=== PATIENT | male | born 1930 | race Caucasian/White ===

== ENCOUNTER 2016-12-28 15:02 | Inpatient (IN) | payer MEDICARE, OTHER ==
[2016-12-28] MEDS ORDERED: Morphine INJ* 4 MG/ML 1 ML SYRINGE IV ONE (15:16)
[2016-12-28] MEDS ORDERED: Ondansetron INJ* 2 MG/ML VIAL IV ONE (15:16)
[2016-12-28] MEDS ORDERED: NS 0.9% 1000 ML* 1,000 ML IV SCH (15:30)
[2016-12-28 15:31] LABS: Hematocrit 43 % (42-52); Hemoglobin 14.4 g/dl (14.0-18.0); Mean Corpuscular HGB Conc 34 g/dl (31-36); Mean Corpuscular Hemoglobin 35 pg (27-31); Mean Corpuscular Volume 102 fL (80-94); Mean Platelet Volume 9 um3 (7.4-10.4); Red Blood Count 4.19 10^6/ul (4.0-5.4); Red Cell Distribution Width 13 % (10.5-15); White Blood Count 6.2 10^3/ul (3.5-10.8)
[2016-12-28 15:48] LABS: Troponin I 0.01 ng/mL (<0.04)
[2016-12-28 15:52] LABS: Albumin 4.1 g/dL (3.2-5.2); BUN/Creatinine Ratio 17.3 (8-20); Calcium 9.2 mg/dL (8.6-10.3); EGFR African American 93.7 (>60); EGFR Non-African American 72.9 (>60); Globulin 2.9 g/dL (2-4); Potassium 3.7 mmol/L (3.5-5.0); Total Bilirubin 0.6 mg/dL (0.2-1.0)
--- NOTE | 2016-12-28 16:16 | RAD ---
INDICATION: Right femur injury. TECHNIQUE: 2 views of the right femur were obtained. FINDINGS: The bones are osteoporotic. There is a comminuted intertrochanteric fracture of the proximal femur. The fracture fragments appear rotated. There is varus angulation. IMPRESSION: COMMINUTED DISPLACED ANGULATED INTERTROCHANTERIC FRACTURE OF THE PROXIMAL FEMUR.
--- NOTE | 2016-12-28 16:19 | RAD ---
INDICATION: Right hip injury. COMPARISON: Comparison is made with a prior x-ray study of the pelvis from January 19, 2009. TECHNIQUE: An AP view of the pelvis and frontal and lateral views of the right hip were obtained. FINDINGS: The bones are osteoporotic. The patient is status post remote operative reduction and internal fixation of the fracture of the left femur. There is a comminuted displaced acute intertrochanteric fracture of the proximal right femur. The fracture fragments are in varus angulation. The lesser trochanter is seen as a separate fragment. No other fractures are seen. IMPRESSION: COMMINUTED, DISPLACED, ANGULATED INTERTROCHANTERIC FRACTURE OF THE PROXIMAL RIGHT FEMUR.
--- NOTE | 2016-12-28 16:29 | RAD ---
INDICATION: Fall. COMPARISON: Comparison is made with a prior CT of the chest from December 02, 2013 and a prior chest x-ray study also from December 02, 2013. TECHNIQUE: A portable view of the chest was obtained. FINDINGS: The heart is within normal limits in size. There is a focal area of increased density which projects over the inferior portion of the heart which correlates with a moderate to large hiatal hernia on the prior CT study. There is mild prominence of the interstitial markings which appears unchanged. No focal infiltrate or pleural effusion is seen. IMPRESSION: 1. NO EVIDENCE FOR ACUTE FINDING. 2. HIATAL HERNIA.
[2016-12-28] MEDS ORDERED: Acetaminophen TAB* 325 MG PO PRN (17:43)
[2016-12-28] MEDS ORDERED: Morphine INJ* 4 MG/ML 1 ML SYRINGE IV PRN (17:43)
--- NOTE | 2016-12-28 17:48 | ED ---
Fareed Irving Billy, scribed for Rojas Fox MD on 12/28/16 at 1514 . Lower Extremity - HPI Summary HPI Summary: Patient is an 86 year-old male BIBA to [facility] for evaluation of RLE pain s/p fall earlier today. Patient states that he got up from his seat and his leg gave out from under him. Patient reports pain to the upper right leg, severity 8 /10. Pain is worse with any movement. Denies any pain in the hip. Patient uses Coumadin. - History of Current Complaint Chief Complaint: EDExtremityLower Stated Complaint: FALL/LEG PAIN Time Seen by Provider: 12/28/16 15:09 Hx Obtained From: Patient Mechanism Of Injury: Fall From Height Of: - chair Onset of Pain: Immediate Onset/Duration: Hours Severity Initially: Moderate Severity Currently: Moderate Pain Intensity: 8 Pain Scale Used: 0-10 Numeric Timing: Constant Location: Is Discrete @ - RLE Associated Signs And Symptoms: Positive: Negative Aggravating Factor(s): Movement Alleviating Factor(s): Rest Able to Bear Weight: No - Allergies/Home Medications Allergies/Adverse Reactions: Allergies Allergy/AdvReac Type Severity Reaction Status Date / Time No Known Allergies Allergy Verified 12/02/13 10:03 PMH/Surg Hx/FS Hx/Imm Hx Endocrine/Hematology History: Reports: Hx Anticoagulant Therapy Denies: Hx Diabetes Cardiovascular History: Reports: Hx Angina, Hx Hypercholesterolemia, Hx Hypertension, Other Cardiovascular Problems/Disorders - CAROTID ARTERY BLOCKAGE Denies: Hx Coronary Artery Disease, Hx Myocardial Infarction, Hx Valvular Heart Disease Respiratory History: Denies: Hx Asthma, Hx Chronic Obstructive Pulmonary Disease (COPD) History: Reports: Hx Kidney Stones Sensory History: Reports: Hx Contacts or Glasses Opthamlomology History: Reports: Hx Contacts or Glasses - Surgical History Surgery Procedure, Year, and Place: 12/2008 left femur repair; 1996 right carotid artery stent Infectious Disease History: No Infectious Disease History: Denies: Traveled Outside the [place] in Last 30 Days - Family History Known Family History: Negative: Cardiac Disease - Social History Occupation: Retired Alcohol Use: None Substance Use Type: Reports: None Review of Systems Negative: Fever Positive: Arthralgia All Other Systems Reviewed And Are Negative: Yes Physical Exam Triage Information Reviewed: Yes Vital Signs On Initial Exam: Initial Vitals Temp Pulse Resp BP Pulse Ox 99.3 F 104 16 158/85 95 12/28/16 15:06 12/28/16 15:06 12/28/16 15:06 12/28/16 15:06 12/28/16 15:06 Vital Signs Reviewed: Yes Appearance: Positive: Well-Appearing, No Pain Distress Skin: Positive: Warm, Skin Color Reflects Adequate Perfusion, Dry Head/Face: Positive: Normal Head/Face Inspection Eyes: Positive: EOMI, DEBI ENT: Positive: Normal ENT inspection Neck: Positive: Supple, Nontender Respiratory/Lung Sounds: Positive: Clear to Auscultation, Breath Sounds Present Cardiovascular: Positive: Murmur, Tachycardia Abdomen Description: Positive: Nontender, Soft Musculoskeletal: Positive: Pain @ - There is shortening and external rotation of the RLE. It is tender to the mid-thigh proximally. There is also pain with ROM of the right shoulder. Neurological: Positive: Normal, Sensory/Motor Intact, Alert, Oriented to Person Place, Time Psychiatric: Positive: Affect/Mood Appropriate Diagnostics - Vital Signs Vital Signs Temp Pulse Resp BP Pulse Ox 12/28/16 15:06 99.3 F 104 16 158/85 95 - Laboratory Lab Results: Lab Results 12/28/16 12/28/16 12/28/16 Range/Units 15:20 15:20 15:20 WBC 6.2 (3.5-10.8) 10^3/ul RBC 4.19 (4.0-5.4) 10^6/ul Hgb 14.4 (14.0-18.0) g/dl Hct 43 (42-52) % MCV 102 H (80-94) fL MCH 35 H (27-31) pg MCHC 34 (31-36) g/dl RDW 13 (10.5-15) % Plt Count 177 (150-450) 10^3/ul MPV 9 (7.4-10.4) um3 Neut % (Auto) 56.1 (38-83) % Lymph % (Auto) 30.3 (25-47) % Deuel % (Auto) 7.3 (1-9) % Eos % (Auto) 5.1 (0-6) % Baso % (Auto) 1.2 (0-2) % Absolute Neuts (auto) 3.5 (1.5-7.7) 10^3/ul Absolute Lymphs (auto) 1.9 (1.0-4.8) 10^3/ul Absolute Monos (auto) 0.5 (0-0.8) 10^3/ul Absolute Eos (auto) 0.3 (0-0.6) 10^3/ul Absolute Basos (auto) 0.1 (0-0.2) 10^3/ul Absolute Nucleated RBC 0.01 10^3/ul Nucleated RBC % 0.1 INR (Anticoag Therapy) 2.08 H (0.89-1.11) APTT 35.0 (26.0-36.3) seconds Sodium 135 (133-145) mmol/L Potassium 3.7 (3.5-5.0) mmol/L Chloride 102 (101-111) mmol/L Carbon Dioxide 25 (22-32) mmol/L Anion Gap 8 (2-11) mmol/L BUN 17 (6-24) mg/dL Creatinine 0.98 (0.67-1.17) mg/dL Est GFR ( Amer) 93.7 (>60) Est GFR (Non-Af Amer) 72.9 (>60) BUN/Creatinine Ratio 17.3 (8-20) Glucose 204 H (70-100) mg/dL Calcium 9.2 (8.6-10.3) mg/dL Total Bilirubin 0.60 (0.2-1.0) mg/dL AST 21 (13-39) U/L ALT 18 (7-52) U/L Alkaline Phosphatase 91 (34-104) U/L Troponin I 0.01 (<0.04) ng/mL Total Protein 7.0 (6.4-8.9) g/dL Albumin 4.1 (3.2-5.2) g/dL Globulin 2.9 (2-4) g/dL Albumin/Globulin Ratio 1.4 (1-3) Lipase 12 (11.0-82.0) U/L Result Diagrams: 12/28/16 15:20 12/28/16 15:20 Lab Statement: Any lab studies that have been ordered have been reviewed, and results considered in the medical decision making process. - Radiology Hip XRay Radiology Interpretation Completed By: Radiologist - COMMINUTED, DISPLACED, ANGULATED INTERTROCHANTERIC FRACTURE OF THE PROXIMAL RIGHT FEMUR. Femur XRay Radiology Interpretation Completed By: Radiologist - COMMINUTED, DISPLACED, ANGULATED INTERTROCHANTERIC FRACTURE OF THE PROXIMAL RIGHT FEMUR. CXR Radiology Interpretation Completed By: Radiologist - 1. NO EVIDENCE FOR ACUTE FINDING. 2. HIATAL HERNIA. Lower Extremity Course/Dx - Course Course Of Treatment: NO CRITICAL CARE TIME Assessment/Plan: DISCUSSED WITH DR VALDERRAMA. ADMIT HOSPITALIST STABLE. - Diagnoses Provider Diagnoses: Hip fracture, right - Physician Notifications Discussed Care of Patient With: Dr. Medina (hospitalist) @ 1726: accepts admission. Discharge - Discharge Plan Condition: Stable Disposition: ADMITTED TO [facility] Referrals: Michelet Decker MD [Primary Care Provider] - The documentation as recorded by the Fareed martinez Billy accurately reflects the service I personally performed and the decisions made by me, Rojas Fox MD.
[2016-12-28] MEDS ORDERED: Ondansetron INJ* 2 MG/ML VIAL IV PRN (18:00)
[2016-12-28] MEDS ORDERED: Phytonadione Oral Solution* 5 MG/25 ML UDC PO ONE (18:13)
[2016-12-28] MEDS: NS 0.9% 1000 ML* 1,000 ML IV SCH (19:00)
[2016-12-28] MEDS ORDERED: PROCHLORPERAZINE INJ 5 MG/ML 2 ML VIAL IV PRN (22:00)
[2016-12-28] MEDS: Cyclobenzaprine TAB* 10 MG PO PRN (22:35)
[2016-12-28] MEDS: oxyCODONE/Acetamin 5/325 MG* TAB PO PRN (23:36)
--- NOTE | 2016-12-29 01:49 | HP ---
MEDICINE HISTORY AND PHYSICAL: DATE OF ADMISSION: 12/28/16 PROVIDER: Coy Echavarria NP ATTENDING PROVIDER: Valencia Craig DO *(dictated by Coy Echavarria NP). CONSULTING PHYSICIAN: Dr. Yamilet Avery, Orthopedics. PRIMARY CARE PHYSICIAN: Dr. Decker. CHIEF COMPLAINT: Fall, right leg pain. HISTORY OF PRESENT ILLNESS: Mr. Sanchez is an 86-year-old gentleman, who lives at home with his . He was brought in by ambulance after sustaining a fall at home. He states that he was sleeping in a chair and attempted to get up and turned the wrong way and lost his balance. He reports falling out of the chair and landing on his right side. He states that he bumped his head on the desk, but denies any loss of consciousness. He was able to call for help. His stepson, who is also a flight deck officer, called EMS. In the ED, the patient was evaluated and x-ray was done of the hip, femur and pelvis and it was noted that the patient has a comminuted displaced angulated intertrochanteric fracture of the proximal right femur. Orthopedics were called. They will be consulting for surgical repair. The patient states prior to this incident, he was in good condition. He reports living at home with his . He has good activity tolerance. He states that he used to walk 4 miles a day. He can climb a flight of stairs and is able to perform ADLs independently. He denies any recent illness, flu or cold-like symptoms. He denies any chest pain, palpitations, edema. He denies any cough or shortness of breath. He denies any abdominal pain, nausea, vomiting or diarrhea. He denies any dysuria or hematuria. He denies any focal weakness, sensory loss, tingling, and numbness. He denies any new changes to the vision, hearing or swallowing. He denies any new joint pains or muscles pains. He denies any new rashes or lesions. PAST MEDICAL HISTORY: Includes: 1. Recurrent TIAs, the patient is on chronic warfarin. 2. History of carotid endarterectomy on the right side in 1996. 3. Hypertension. 4. Dyslipidemia. 5. Left hip fracture with repair in 2008. HOME MEDICATIONS: 1. Warfarin 5 mg daily. 2. Simvastatin 10 mg daily. 3. Multivitamin 1 tab daily. 4. Persantine 25 mg b.i.d. 5. Vitamin B complex 1 tab daily. 6. Vitamin C 500 mg daily. 7. Amlodipine 5 mg daily. ALLERGIES: No known allergies. FAMILY HISTORY: He reports a sister with high cholesterol. He states his mother lived to age 89. He is unaware of her medical history. His father with the age 90 and had a history of prostate cancer. SOCIAL HISTORY: He reports being a former smoker back between 1950 and 1959. He smoked 3 packs a day for approximately 10 years and then quit. He denies any alcohol or recreational drug use. He is retired. He lives at home with his . He has 3 adult children and 3 stepchildren. His , Susan Sanchez, is the surrogate decision maker and healthcare proxy. REVIEW OF SYSTEMS: A 14-point review of systems was completed. All pertinent positives and negatives are included in the HPI . All those not mentioned are negative. PHYSICAL EXAMINATION GENERAL: Mr. Sanchez is a very pleasant 86-year-old gentleman, who is lying in the ED stretcher. He appears mildly uncomfortable, but he is in no acute distress. VITAL SIGNS: Temperature 99.3, respiratory rate 16, heart rate 98, blood pressure 130/68, and O2 saturation is 97% on room air. HEENT: Head is atraumatic, normocephalic. Face is symmetrical. Pupils are equal, round, reactive to light. The patient has a left cataract. Sclerae are anicteric. External ears and nose are normal. Oral mucosa appears moist. NECK: Supple. No lymphadenopathy noted. RESPIRATORY: Lungs are clear to auscultation. There is no accessory muscle use. CARDIAC: S1, S2 heart sounds. Regular rate and rhythm. The patient does have a loud 3-4/6 systolic murmur that has heard best at the right sternal border. There is no peripheral edema. Distal pulses are 2+, symmetrical. ABDOMEN: Soft, nontender, nondistended. Bowel sounds present times all 4 quadrants. MUSCULOSKELETAL: There is shortening in external rotation of the right lower extremity. The patient has tenderness with palpation to the right hip and mid thigh. Other extremities have full range of motion. SKIN: Appears grossly intact. He does have a right skin tear to the right forearm and right shoulder ecchymosis. NEUROLOGIC: Cranial nerves II through XII are grossly intact. The patient is unable to fully move right lower extremity secondary to fracture. He does follow directions. Sensation is intact to light touch to bilateral lower extremities. PSYCH: He is alert and oriented x3. His affect is appropriate. DIAGNOSTIC STUDIES/LAB DATA: CBC: WBC 6.2, hemoglobin 14.4, hematocrit 43, platelet count 177, INR was 2.08. CMP: Sodium 135, potassium 3.7, chloride 102 , carbon dioxide 25, BUN 17, creatinine 0.98, glucose 204, calcium 9.2, total bilirubin 0.6, AST 21, ALT 18, alk phos 91, troponin 0.01, total protein 7.0, albumin 4.1. Chest x-ray shows no evidence for acute finding and hiatal hernia. Femur x-ray shows a comminuted displaced angulated intertrochanteric fracture of the proximal femur. Old medical records were reviewed. ASSESSMENT AND PLAN: Mr. Sanchez is an 86-year-old gentleman, who presents today with a right intertrochanteric femur fracture secondary to mechanical falls. He will be admitted as an inpatient. The plan is as follows: 1. Femur fracture: Admit to surgical stay unit. Dr. Avery has been consulted and she will discuss the case with Dr. Hawkins or Dr. Tucker. The patient is on warfarin. His INR is 2.08. We will give him vitamin K tonight and recheck in the morning. We will also hold his Persantine. Preoperatively, the patient has a function MET score of 4 to 6 and has good activity tolerance. He is independent with ADLs. He has no known cardiac history and denies any history of dysrhythmias. His hypertension is well controlled. There is concern for murmur, which he states he had had for a while, but does not know of any valvular abnormalities. I will go ahead and obtain an echocardiogram for further cardiac clearance. Assuming this is normal, the patient does appear to be medically optimized for surgery. In the interim, we will continue with pain management. The patient will be on bed rest. 2. Hypertension: Continue home amlodipine. 3. Dyslipidemia: Continue statin. 4. History of transient ischemic attack and carotid endarterectomy: We will be holding his warfarin and Persantine at this time. We will resume in the postoperative period when okay with Ortho. 5. FEN. The patient is ordered a heart healthy diet. He will also be receiving IV fluids. 6. DVT prophylaxis: He is a highest risk. In the preoperative period, we will be holding his warfarin. Recheck his INR. Use SCDs at this point to his unaffected leg for DVT prophylaxis and resume anticoagulation when appropriate. 7. Code status: He is a full code. TIME SPENT: Time spent on this admission was approximately 60 minutes, more than half the time was spent [id number] with the patient obtaining history and physical, performing the physical examination, and reviewing the plan of care. Plan of care was also reviewed with my attending, Dr. Craig, who is in agreement. COY ECHAVARRIA NP CC: Dr. Decker* [id number]/CPS #: [id number] MTDD
--- NOTE | 2016-12-29 02:23 | CONS ---
CONSULTATION REPORT: DATE OF CONSULT: 12/28/16 CHIEF COMPLAINT: Right hip pain. HISTORY OF PRESENT ILLNESS: Warner is an 86-year-old man who got up quickly from his chair and turned to walk across the living room and tripped and landed on his right hip. He was brought to the emergency room and had x-rays, which show a comminuted intertrochanteric fracture of the right hip. He has a history of a left hip fracture treated with intramedullary fixation, did very well after that. He is on Coumadin therapy for having a history of carotid artery disease. His INR is 2.08 today. PHYSICAL EXAM: He is a healthy-appearing, very pleasant man, in mild distress at rest. He has tenderness of his right hip. Pain with range of motion of the hip. Short and externally rotated right lower extremity, palpable dorsalis pedis pulse, intact neurovascular function. DIAGNOSTIC STUDIES/LAB DATA: X-ray, AP and lateral of the right hip and AP pelvis and AP lateral of the right femur show a comminuted intertrochanteric fracture of the right hip. Chest x-ray is clear. IMPRESSION: Right hip fracture, intertrochanteric. PLAN: The patient will be given vitamin K and is admitted to the Hospitalist to get his INR down to normal. He will then be treated with surgery for his right hip by Dr. Hawkins. Plan is for him to have surgery on Friday. The patient is in agreement with that plan. I will place him in some Mejias's traction to try to get him a little bit more comfortable. [id number]/CPS #: [id number] MTDD
[2016-12-29 03:13] LABS: Urine Bacteria Absent (Absent); Urine Bilirubin Negative (Negative); Urine Glucose Negative (Negative); Urine Nitrite Negative (Negative)
[2016-12-29] MEDS: NS 0.9% 1000 ML* 1,000 ML IV SCH ×2 (04:48→13:46)
[2016-12-29 06:31] LABS: Hematocrit 32 % (42-52); Hemoglobin 10.8 g/dl (14.0-18.0); Mean Corpuscular HGB Conc 34 g/dl (31-36); Mean Corpuscular Hemoglobin 35 pg (27-31); Mean Corpuscular Volume 103 fL (80-94); Mean Platelet Volume 9 um3 (7.4-10.4); Red Blood Count 3.12 10^6/ul (4.0-5.4); Red Cell Distribution Width 14 % (10.5-15); White Blood Count 9.5 10^3/ul (3.5-10.8)
[2016-12-29] MEDS: oxyCODONE/Acetamin 5/325 MG* TAB PO PRN ×4 (07:11→22:23)
[2016-12-29 07:12] LABS: BUN/Creatinine Ratio 18.9 (8-20); Calcium 8.2 mg/dL (8.6-10.3); EGFR African American 103.4 (>60); EGFR Non-African American 80.4 (>60); Potassium 4.6 mmol/L (3.5-5.0)
--- NOTE | 2016-12-29 09:40 | ECHO ---
Patient: PAOLA ROE [facility] Rec#: [id number] : 1930 Date: 12/29/2016 Age: 86y Height: 190.5 cm / 75.0 in Weight: 80.74 kg / 178.0 lbs Sex: M BSA: 2.09 Room#: 338 Admit Date#: 12/28/2016 Type: Inpatient Referring: Jaqueline Ryan Reading: Sharad Grijalva MD Producer Assistant: Rosalind Burgos RDCS CC: Michelet Decker MD Transthoracic Echocardiogram Indication: Murmur BP: 105/62 HR: 77 Rhythm: NSR with PVCs Findings History: Fell at home and fx. right hip,TIAs in the past,s/p right CEA 1996,HTN,HLD,systolic murmur RSB. Entire study doen with pt supine. Technical Comments: The study was technically limited due to the patient's inability to lay in the left lateral decubitus position. Left Ventricle: The left ventricular chamber size is decreased. Moderate concentric left ventricular hypertrophy is observed. There is normal left ventricular systolic function. The estimated ejection fraction is 55-60%. Abnormal left ventricular diastolic function is observed. Left Atrium: The left atrium is mildly dilated. Right Ventricle: The right ventricular cavity size is normal. The right ventricular global systolic function is normal. Right Atrium: The right atrial cavity size is normal. Aortic Valve: The aortic valve structure is not well visualized. Moderate aortic leaflet calcification is visualized. Systolic excursion of the aortic valve cusps is reduced. There is a trace of aortic regurgitation. There is moderate to severe aortic stenosis.The aortic valve/leaflets is not well visualized to comment on 2d mobility and stenosis. there is significant aortic valve sclerosis/calcification. The highest aortic valve velocity was obtained with the standard probe from the A5C view. Mitral Valve: There is mitral annular calcification. There is a trace of mitral regurgitation. There is mild mitral stenosis. Tricuspid Valve: The tricuspid valve structure is not well visualized. Pulmonic Valve: The pulmonic valve structure is not well visualized. Pericardium: The pericardium appears normal. Aorta: The ascending aorta is not well visualized. There is no dilatation of the aortic arch. There is no dilation of the aortic root. Pulmonary Artery: The main pulmonary artery is not well visualized. Venous: The venous system is not well visualized. Summary: There are changes noted when compared to the previous study done on 01/03/2009, valvular disease are new. Conclusions The left ventricular chamber size is decreased. Moderate concentric left ventricular hypertrophy is observed. The estimated ejection fraction is 55-60%. Abnormal left ventricular diastolic function is observed. The left atrium is mildly dilated. The aortic valve structure is not well visualized. Moderate aortic leaflet calcification is visualized. There is a trace of aortic regurgitation. There is moderate to severe aortic stenosis.The aortic valve/leaflets is not well visualized to comment on 2d mobility and stenosis. there is significant aortic valve sclerosis/calcification. There is mitral annular calcification. There is a trace of mitral regurgitation. There is mild mitral stenosis. There are changes noted when compared to the previous study done on 01/03/2009, valvular disease are new. If clinically indicated, BINTA might be of further help to visualize the aortic valve anatomy. Measurements Name Value Normal Range RVDdMajor (2D) 3.8 cm (2.2 - 4.4) RAd ISD 4CH 5.1 cm (3.4 - 4.9) RA (A4C)W 3.9 cm (2.9 - 4.6) IVSd (2D) 1.4 cm (0.6 - 1) LVPWd (2D) 1.5 cm (0.6 - 1) LVIDd (2D) 3.1 cm (3.6 - 5.4) LVIDs (2D) 2.2 cm - LV FS (2D) 29 % (25 - 45) Aortic Annulus 1.5 cm (1.4 - 2.6) Ao root diameter (2D) 3.5 cm (2.1 - 3.5) Aortic arch 2.5 cm (1.8 - 3.4) Descending Ao 0.7 cm - LA dimension (AP) 2D 3.2 cm (2.3 - 3.8) LAd ISD 4CH 6.4 cm (2.9 - 5.3) LA ISD 4CH W 4.9 cm (2.5 - 4.5) Name Value Normal Range MV E-wave Vmax 0.9 m/sec - MV deceleration time 360 msec - MV A-wave Vmax 1.2 m/sec - MV E:A ratio 0.71 ratio - LV septal e' Vmax 0.05 m/sec - LV lateral e' Vmax 0.06 m/sec - LV E:e' septal ratio 18 ratio - LV E:e' lateral ratio 15 ratio - Name Value Normal Range AV Vmax 3.4 m/sec - AV VTI 82.6 cm - AV peak gradient 45.66 mmHg - AV mean gradient 27.18 mmHg - LVOT diameter 1.7 cm - LVOT Vmax 1 m/sec - LVOT VTI 21.7 cm - LVOT peak gradient 3.96 mmHg - LVOT mean gradient 2.31 mmHg - JOSLYN (continuity Vmax) 0.7 cm2 - JOSLYN (continuity VTI) 0.6 cm2 - Name Value Normal Range RVOT diameter 5.12 cm -
--- NOTE | 2016-12-29 10:42 | PN ---
Progress Note - Progress Note SOAP: Subjective: [Pt was seen today while sitting up in bed. He states that he has his pain under control. He denies any numbness and tingling of the lower extremity. ] Objective: [General: Pt is awake, alert and oriented. NAD. MSK: RLE: Pt has full sensation in toes. 2+ DP pulse is present. Vital Signs Temp 98.0 F 12/29/16 07:10 Pulse 74 12/29/16 07:10 Resp 16 12/29/16 09:11 BP 112/54 12/29/16 07:10 Pulse Ox 96 12/29/16 07:10 Intake & Output 12/28/16 12/29/16 12/29/16 18:59 06:59 18:59 Intake Total 1002 1040 320 Output Total 275 300 Balance 1002 765 20 Weight 180 lb 180 lb Intake: IV Fluids 1000 990 NS (0.9%) 990 IVPB 2 Oral 50 320 Output: Urine 275 300 Laboratory Results - last 24 hr 12/28/16 12/28/16 12/28/16 15:20 15:20 15:20 WBC 6.2 RBC 4.19 Hgb 14.4 Hct 43 MCV 102 H MCH 35 H MCHC 34 RDW 13 Plt Count 177 MPV 9 Neut % (Auto) 56.1 Lymph % (Auto) 30.3 [place] % (Auto) 7.3 Eos % (Auto) 5.1 Baso % (Auto) 1.2 Absolute Neuts (auto) 3.5 Absolute Lymphs (auto) 1.9 Absolute Monos (auto) 0.5 Absolute Eos (auto) 0.3 Absolute Basos (auto) 0.1 Absolute Nucleated RBC 0.01 Nucleated RBC % 0.1 INR (Anticoag Therapy) 2.08 H APTT 35.0 Sodium 135 Potassium 3.7 Chloride 102 Carbon Dioxide 25 Anion Gap 8 BUN 17 Creatinine 0.98 Est GFR ( Amer) 93.7 Est GFR (Non-Af Amer) 72.9 BUN/Creatinine Ratio 17.3 Glucose 204 H Calcium 9.2 Total Bilirubin 0.60 AST 21 ALT 18 Alkaline Phosphatase 91 Troponin I 0.01 Total Protein 7.0 Albumin 4.1 Globulin 2.9 Albumin/Globulin Ratio 1.4 Lipase 12 Urine Color Urine Appearance Urine pH Ur Specific Armstrong Urine Protein Urine Ketones Urine Blood Urine Nitrate Urine Bilirubin Urine Urobilinogen Ur Leukocyte Esterase Urine WBC (Auto) Urine RBC (Auto) Urine Bacteria Urine Glucose Urine Ascorbic Acid 12/29/16 12/29/16 12/29/16 03:00 05:50 05:50 WBC 9.5 RBC 3.12 L Hgb 10.8 L Hct 32 L MCV 103 H MCH 35 H MCHC 34 RDW 14 Plt Count 149 L MPV 9 Neut % (Auto) 72.6 Lymph % (Auto) 16.8 L [place] % (Auto) 10.2 H Eos % (Auto) 0.1 Baso % (Auto) 0.3 Absolute Neuts (auto) 6.9 Absolute Lymphs (auto) 1.6 Absolute Monos (auto) 1.0 H Absolute Eos (auto) 0 Absolute Basos (auto) 0 Absolute Nucleated RBC 0.01 Nucleated RBC % 0.1 INR (Anticoag Therapy) 2.00 H APTT Sodium Potassium Chloride Carbon Dioxide Anion Gap BUN Creatinine Est GFR ( Amer) Est GFR (Non-Af Amer) BUN/Creatinine Ratio Glucose Calcium Total Bilirubin AST ALT Alkaline Phosphatase Troponin I Total Protein Albumin Globulin Albumin/Globulin Ratio Lipase Urine Color Yellow Urine Appearance Clear Urine pH 5.0 Ur Specific [place] 1.025 Urine Protein 1+(30 mg/dl) H Urine Ketones Trace H Urine Blood Negative Urine Nitrate Negative Urine Bilirubin Negative Urine Urobilinogen Negative Ur Leukocyte Esterase Negative Urine WBC (Auto) Trace(0-5/hpf) Urine RBC (Auto) Trace(0-2/hpf) Urine Bacteria Absent Urine Glucose Negative Urine Ascorbic Acid * H ] Assessment: [R Intertrochanteric Fracture of R femur ] Plan: [Pts INR is down from 2.08 to 2.00. Will give another dose of Vit K in order to attempt to bring this down more. We would like to have the surgery tomorrow if the INR comes down sufficiently. Continue current pain medications. ]
[2016-12-29] MEDS ORDERED: Senna TAB PO PRN (11:52)
[2016-12-29] MEDS ORDERED: Phytonadione Oral Solution* 5 MG/25 ML UDC PO ONE (12:00)
--- NOTE | 2016-12-29 12:01 | PN ---
Subjective Date of Service: 12/29/16 Interval History: Mr. Sanchez reports RLE pain at 7-8/10. He states he was recently repositioned and had his mattress inflated more for comfort. He is reluctant to use pain medication. We discussed the importance of good pain management. He denies CP, SOB, abd pain, n/v. He reports good activity tolerance at home and is able to perform ADLs independently. He also cares for his . Family History: Unchanged from Admission Social History: Unchanged from Admission Past Medical History: Unchanged from Admission Objective Active Medications: Acetaminophen (Tylenol Tab*) 650 mg PO Q4H PRN PRN Reason: FEVER/PAIN Cyclobenzaprine HCl (Flexeril Tab*) 10 mg PO TID PRN PRN Reason: SPASMS Last Admin: 12/28/16 22:35 Dose: 10 mg Docusate Sodium (Colace Cap*) 100 mg PO BID PRN PRN Reason: CONSTIPATION Sodium Chloride (Ns 0.9% 1000 Ml*) 1,000 mls @ 100 mls/hr IV PER RATE [facility] Last Admin: 12/29/16 04:48 Dose: 100 mls/hr Magnesium Hydroxide (Milk Of [employer] Liq*) 30 ml PO Q4H PRN PRN Reason: CONSTIPATION Ondansetron HCl (Zofran Inj*) 4 mg IV Q6H PRN PRN Reason: NAUSEA Last Admin: 12/28/16 19:11 Dose: 4 mg Oxycodone/Acetaminophen (Percocet 5/325 Tab*) 1 tab PO Q4H PRN PRN Reason: PAIN - MILD TO MODERATE Last Admin: 12/29/16 07:11 Dose: 1 tab Oxycodone/Acetaminophen (Percocet 5/325 Tab*) 2 tab PO Q4H PRN PRN Reason: PAIN - MODERATE TO SEVERE Phytonadione (Vitamin K Oral Solution*) 5 mg PO ONCE ONE Stop: 12/29/16 11:55 Polyethylene Glycol/Electrolytes (Miralax*) 17 gm PO DAILY [facility] Prochlorperazine Edisylate (Compazine Inj*) 5 mg IV Q6H PRN PRN Reason: NAUSEA/VOMITING Last Admin: 12/28/16 22:34 Dose: 5 mg Senna (Senokot Tab*) 2 tab PO BEDTIME PRN PRN Reason: CONSTIPATION Vital Signs 12/28/16 12/28/16 12/28/16 17:55 18:00 18:31 Temperature Pulse Rate 101 101 Respiratory 16 Rate Blood Pressure 144/80 147/73 (mmHg) O2 Sat by Pulse 96 95 Oximetry 12/28/16 12/28/16 12/28/16 18:50 18:58 19:31 Temperature 97.9 F 97.9 F Pulse Rate 77 77 Respiratory 16 16 16 Rate Blood Pressure 110/63 110/63 (mmHg) O2 Sat by Pulse 93 93 Oximetry 12/28/16 12/28/16 12/28/16 19:41 21:30 22:35 Temperature 98.8 F Pulse Rate 81 Respiratory 16 16 18 Rate Blood Pressure 152/62 (mmHg) O2 Sat by Pulse 98 Oximetry 12/28/16 12/28/16 12/29/16 23:36 23:48 00:35 Temperature 97.4 F Pulse Rate 70 Respiratory 16 16 14 Rate Blood Pressure 104/55 (mmHg) O2 Sat by Pulse 96 Oximetry 12/29/16 12/29/16 12/29/16 01:36 04:14 07:10 Temperature 97.3 F 98.0 F Pulse Rate 69 74 Respiratory 14 16 17 Rate Blood Pressure 106/52 112/54 (mmHg) O2 Sat by Pulse 96 96 Oximetry 12/29/16 12/29/16 12/29/16 07:11 08:00 09:11 Temperature Pulse Rate Respiratory 18 16 16 Rate Blood Pressure (mmHg) O2 Sat by Pulse Oximetry Appearance: Elderly gentleman, sitting up in bed, in NAD Eyes: PERRLA Ears/Nose/Mouth/Throat: Clear Oropharnyx, Mucous Membranes Moist Neck: NL Appearance and Movements; NL JVP Respiratory: Symmetrical Chest Expansion and Respiratory Effort, Clear to Auscultation Cardiovascular: RRR - loud systolic mumur 4/6 Abdominal: NL Sounds; No Tenderness; No Distention Extremities: - - RLE shortening with external rotation, in Mjeias's traction Skin: No Rash or Ulcers, - - skin tear to right forearm Neurological: Alert and Oriented x 3 Lines/Tubes/Other Access: Clean, Dry and Intact Peripheral IV Nutrition: Taking PO's Result Diagrams: 12/29/16 05:50 12/29/16 05:50 Additional Lab and Data: Lab Results 12/28/16 12/28/16 12/28/16 Range/Units 15:20 15:20 15:20 WBC 6.2 (3.5-10.8) 10^3/ul RBC 4.19 (4.0-5.4) 10^6/ul Hgb 14.4 (14.0-18.0) g/dl Hct 43 (42-52) % MCV 102 H (80-94) fL MCH 35 H (27-31) pg MCHC 34 (31-36) g/dl RDW 13 (10.5-15) % Plt Count 177 (150-450) 10^3/ul MPV 9 (7.4-10.4) um3 Neut % (Auto) 56.1 (38-83) % Lymph % (Auto) 30.3 (25-47) % [place] % (Auto) 7.3 (1-9) % Eos % (Auto) 5.1 (0-6) % Baso % (Auto) 1.2 (0-2) % Absolute Neuts (auto) 3.5 (1.5-7.7) 10^3/ul Absolute Lymphs (auto) 1.9 (1.0-4.8) 10^3/ul Absolute Monos (auto) 0.5 (0-0.8) 10^3/ul Absolute Eos (auto) 0.3 (0-0.6) 10^3/ul Absolute Basos (auto) 0.1 (0-0.2) 10^3/ul Absolute Nucleated RBC 0.01 10^3/ul Nucleated RBC % 0.1 INR (Anticoag Therapy) 2.08 H (0.89-1.11) APTT 35.0 (26.0-36.3) seconds Sodium 135 (133-145) mmol/L Potassium 3.7 (3.5-5.0) mmol/L Chloride 102 (101-111) mmol/L Carbon Dioxide 25 (22-32) mmol/L Anion Gap 8 (2-11) mmol/L BUN 17 (6-24) mg/dL Creatinine 0.98 (0.67-1.17) mg/dL Est GFR ( Amer) 93.7 (>60) Est GFR (Non-Af Amer) 72.9 (>60) BUN/Creatinine Ratio 17.3 (8-20) Glucose 204 H (70-100) mg/dL Calcium 9.2 (8.6-10.3) mg/dL Total Bilirubin 0.60 (0.2-1.0) mg/dL AST 21 (13-39) U/L ALT 18 (7-52) U/L Alkaline Phosphatase 91 (34-104) U/L Troponin I 0.01 (<0.04) ng/mL Total Protein 7.0 (6.4-8.9) g/dL Albumin 4.1 (3.2-5.2) g/dL Globulin 2.9 (2-4) g/dL Albumin/Globulin Ratio 1.4 (1-3) Lipase 12 (11.0-82.0) U/L Assess/Plan/Problems-Billing Assessment: Mr. 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 - Patient Problems (1) Preoperative clearance Code(s): Z01.818 - ENCOUNTER FOR OTHER PREPROCEDURAL EXAMINATION Comment: RCRI score of 1, giving him a 0.9% risk of major cardiac event Functional capacity 4-6 METS, previously independent at home with ADLs No previously known history of DM, will check HgbA1c Previously on warfarin and dipyridamole, now held. Received 2 doses Vitamin K Concern for moderate to severe aortic stenosis on TTE - discussed with cardiology. Unable to fully visualize valve so BINTA recommended for 4/3 AM in order to better evaluate severity of stenosis. If severe to critical seen, recommend cardiology consult. However, patient reports good activity tolerance and appears to be asymptomatic prior to admission. With exception of aortic stenosis (which is still under evaluation), patient is otherwise medically optimized for surgery. (2) Intertrochanteric fracture of right femur Current Visit: Yes Status: Acute Code(s): S72.141A - DISPLACED INTERTROCHANTERIC FRACTURE OF RIGHT FEMUR, INIT SNOMED Code(s): 109951663 (3) Aortic stenosis Code(s): I35.0 - NONRHEUMATIC AORTIC (VALVE) STENOSIS Comment: Patient unaware of , denies activity intolerance and reports being able to climb stairs, walk long distances, and perform ADLs. Read as moderate to severe on TTE; cardiology recommends BINTA to better visualize the valve and determine cardiac risk prior to surgery. Avoid overhydration and dehydration. (4) HTN (hypertension) Code(s): I10 - ESSENTIAL (PRIMARY) HYPERTENSION Comment: Normotensive and borderline hypotensive, hold amlodipine at this time. (5) Dyslipidemia Code(s): E78.5 - HYPERLIPIDEMIA, UNSPECIFIED Comment: Continue statin. (6) History of recurrent TIAs Code(s): Z86.73 - PRSNL HX OF TIA (TIA), AND CEREB INFRC W/O RESID DEFICITS Comment: Warfarin on hold pre-operatively. Resume when OK with ortho. (7) History of right-sided carotid endarterectomy Code(s): Z98.890 - OTHER SPECIFIED POSTPROCEDURAL STATES Comment: In 1996. (8) DVT prophylaxis Code(s): NNF3232 - Comment: INR therapeutic, warfarin on hold pre-operatively Continue SCDs (9) Full code status Code(s): Z78.9 - OTHER SPECIFIED HEALTH STATUS Status and Disposition: Inpatient admission. Anticipate LOS > 2 days.
[2016-12-29] MEDS: Docusate CAP* 100 MG PO PRN (12:14)
--- NOTE | 2016-12-29 14:21 | RAD ---
INDICATION: Head injury on Coumadin. COMPARISON: Comparison is made with a prior CT of the brain from March 29, 2010. TECHNIQUE: Contiguous axial sections of the brain were obtained from the skull base to the vertex without contrast. FINDINGS: The ventricles, cisterns and sulci are enlarged consistent with diffuse atrophy. There are small areas of decreased density in the subcortical and periventricular white matter suggestive of mild chronic small vessel ischemic changes. No other focal abnormality or mass effect is seen. There is no evidence for hemorrhage. No fracture is seen. There is mild to moderate mucosal thickening within the visualized portion of the maxillary, ethmoid frontal and sphenoid sinuses. These findings appear unchanged significantly. The mastoid air cells appear clear. IMPRESSION: NO EVIDENCE FOR ACUTE INTRACRANIAL ABNORMALITY.
[2016-12-29] MEDS: Atorvastatin* 10 MG TAB PO SCH (16:22)
[2016-12-29] MEDS: Cyclobenzaprine TAB* 10 MG PO PRN (20:23)
[2016-12-30] MEDS: NS 0.9% 1000 ML* 1,000 ML IV SCH (00:03)
[2016-12-30] MEDS: Ascorbic Acid TAB* 500 MG PO SCH (08:44)
[2016-12-30] MEDS: Vitamin B Complex TAB PO SCH (08:45)
[2016-12-30] MEDS: Multivitamins/Minerals TAB PO SCH (08:45)
[2016-12-30] MEDS: Polyethylene Glycol 3350* 17 GM PACKET PO SCH (08:45)
--- NOTE | 2016-12-30 11:08 | PN ---
Subjective Date of Service: 12/30/16 Interval History: Patient denies chest pain, SOB, abd pain, n/v. Reports persistent pain to right leg that is improved with pain medication. Plan for surgery today. Family History: Unchanged from Admission Social History: Unchanged from Admission Past Medical History: Unchanged from Admission Objective Active Medications: Acetaminophen (Tylenol Tab*) 650 mg PO Q4H PRN PRN Reason: FEVER/PAIN Ascorbic Acid (Vitamin C Tab*) 500 mg PO DAILY [facility] Last Admin: 12/30/16 08:44 Dose: Not Given Atorvastatin Calcium (Lipitor*) 5 mg PO DAILY@1700 [facility] Last Admin: 12/29/16 16:22 Dose: 5 mg Cyclobenzaprine HCl (Flexeril Tab*) 10 mg PO TID PRN PRN Reason: SPASMS Last Admin: 12/29/16 20:23 Dose: 10 mg Docusate Sodium (Colace Cap*) 100 mg PO BID PRN PRN Reason: CONSTIPATION Last Admin: 12/29/16 12:14 Dose: 100 mg Sodium Chloride (Ns 0.9% 1000 Ml*) 1,000 mls @ 100 mls/hr IV PER RATE [facility] Last Admin: 12/30/16 00:03 Dose: 100 mls/hr Magnesium Hydroxide (Milk Of [place] Liq*) 30 ml PO Q4H PRN PRN Reason: CONSTIPATION Multivitamins/Minerals (Theragran/Minerals Tab*) 1 tab PO DAILY [facility] Last Admin: 12/30/16 08:45 Dose: Not Given Ondansetron HCl (Zofran Inj*) 4 mg IV Q6H PRN PRN Reason: NAUSEA Last Admin: 12/28/16 19:11 Dose: 4 mg Oxycodone/Acetaminophen (Percocet 5/325 Tab*) 1 tab PO Q4H PRN PRN Reason: PAIN - MILD TO MODERATE Last Admin: 12/29/16 18:31 Dose: 1 tab Oxycodone/Acetaminophen (Percocet 5/325 Tab*) 2 tab PO Q4H PRN PRN Reason: PAIN - MODERATE TO SEVERE Last Admin: 12/29/16 22:23 Dose: 2 tab Polyethylene Glycol/Electrolytes (Miralax*) 17 gm PO DAILY [facility] Last Admin: 12/30/16 08:45 Dose: Not Given Prochlorperazine Edisylate (Compazine Inj*) 5 mg IV Q6H PRN PRN Reason: NAUSEA/VOMITING Last Admin: 12/28/16 22:34 Dose: 5 mg Senna (Senokot Tab*) 2 tab PO BEDTIME PRN PRN Reason: CONSTIPATION Vitamin B Complex/Vitamin E (Complex B-100*) 1 tab PO DAILY [facility] Last Admin: 12/30/16 08:45 Dose: Not Given Vital Signs 12/29/16 12/29/16 12/29/16 11:47 12:14 14:13 Temperature 97.3 F Pulse Rate 81 Respiratory 16 18 18 Rate Blood Pressure 113/71 (mmHg) O2 Sat by Pulse 94 Oximetry 12/29/16 12/29/16 12/29/16 15:46 18:31 19:55 Temperature 99.4 F 98.5 F Pulse Rate 78 74 Respiratory 16 18 14 Rate Blood Pressure 109/54 119/53 (mmHg) O2 Sat by Pulse 95 93 Oximetry 12/29/16 12/29/16 12/29/16 20:00 20:23 20:31 Temperature Pulse Rate Respiratory 18 18 16 Rate Blood Pressure (mmHg) O2 Sat by Pulse Oximetry 12/29/16 12/29/16 12/30/16 22:23 23:38 00:23 Temperature 97.3 F Pulse Rate 79 Respiratory 18 15 16 Rate Blood Pressure 120/50 (mmHg) O2 Sat by Pulse 92 Oximetry 12/30/16 12/30/16 12/30/16 03:47 07:51 08:00 Temperature 98.0 F 98.4 F Pulse Rate 85 91 Respiratory 13 16 18 Rate Blood Pressure 137/59 125/61 (mmHg) O2 Sat by Pulse 92 91 Oximetry Oxygen Devices in Use Now: None Appearance: Elderly male patient, lying in bed, in NAD Eyes: PERRLA Ears/Nose/Mouth/Throat: Clear Oropharnyx, Mucous Membranes Moist Respiratory: Symmetrical Chest Expansion and Respiratory Effort, Clear to Auscultation Cardiovascular: NL Sounds; No Murmurs; No JVD, RRR Abdominal: NL Sounds; No Tenderness; No Distention Extremities: - - RLE externally rotated, distal pulses intact Skin: - - right forearm skin tear, bruise to right shoulder Neurological: Alert and Oriented x 3 Lines/Tubes/Other Access: Clean, Dry and Intact Peripheral IV Nutrition: Taking PO's Result Diagrams: 12/29/16 05:50 12/29/16 05:50 Additional Lab and Data: Lab Results 12/28/16 12/28/16 12/28/16 Range/Units 15:20 15:20 15:20 WBC 6.2 (3.5-10.8) 10^3/ul RBC 4.19 (4.0-5.4) 10^6/ul Hgb 14.4 (14.0-18.0) g/dl Hct 43 (42-52) % MCV 102 H (80-94) fL MCH 35 H (27-31) pg MCHC 34 (31-36) g/dl RDW 13 (10.5-15) % Plt Count 177 (150-450) 10^3/ul MPV 9 (7.4-10.4) um3 Neut % (Auto) 56.1 (38-83) % Lymph % (Auto) 30.3 (25-47) % [place] % (Auto) 7.3 (1-9) % Eos % (Auto) 5.1 (0-6) % Baso % (Auto) 1.2 (0-2) % Absolute Neuts (auto) 3.5 (1.5-7.7) 10^3/ul Absolute Lymphs (auto) 1.9 (1.0-4.8) 10^3/ul Absolute Monos (auto) 0.5 (0-0.8) 10^3/ul Absolute Eos (auto) 0.3 (0-0.6) 10^3/ul Absolute Basos (auto) 0.1 (0-0.2) 10^3/ul Absolute Nucleated RBC 0.01 10^3/ul Nucleated RBC % 0.1 INR (Anticoag Therapy) 2.08 H (0.89-1.11) APTT 35.0 (26.0-36.3) seconds Sodium 135 (133-145) mmol/L Potassium 3.7 (3.5-5.0) mmol/L Chloride 102 (101-111) mmol/L Carbon Dioxide 25 (22-32) mmol/L Anion Gap 8 (2-11) mmol/L BUN 17 (6-24) mg/dL Creatinine 0.98 (0.67-1.17) mg/dL Est GFR ( Amer) 93.7 (>60) Est GFR (Non-Af Amer) 72.9 (>60) BUN/Creatinine Ratio 17.3 (8-20) Glucose 204 H (70-100) mg/dL Calcium 9.2 (8.6-10.3) mg/dL Total Bilirubin 0.60 (0.2-1.0) mg/dL AST 21 (13-39) U/L ALT 18 (7-52) U/L Alkaline Phosphatase 91 (34-104) U/L Troponin I 0.01 (<0.04) ng/mL Total Protein 7.0 (6.4-8.9) g/dL Albumin 4.1 (3.2-5.2) g/dL Globulin 2.9 (2-4) g/dL Albumin/Globulin Ratio 1.4 (1-3) Lipase 12 (11.0-82.0) U/L Assess/Plan/Problems-Billing Assessment: Mr. 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 - Patient Problems (1) Preoperative clearance Code(s): Z01.818 - ENCOUNTER FOR OTHER PREPROCEDURAL EXAMINATION Comment: RCRI score of 1, giving him a 0.9% risk of major cardiac event Functional capacity 4-6 METS, previously independent at home with ADLs No previously known history of DM, will check HgbA1c Previously on warfarin and dipyridamole, now held. Received 2 doses Vitamin K Concern for moderate to severe aortic stenosis on TTE - discussed with Dr. Ramires. Official consult requested, but per verbal report, patient has good activity tolerance and does not require any further optimization. (2) Intertrochanteric fracture of right femur Code(s): S72.141A - DISPLACED INTERTROCHANTERIC FRACTURE OF RIGHT FEMUR, INIT Comment: Plan for surgical correction today. Continue pain management. PT/OT/PMRU referrals place. (3) Aortic stenosis Code(s): I35.0 - NONRHEUMATIC AORTIC (VALVE) STENOSIS Comment: Patient unaware of , denies activity intolerance and reports being able to climb stairs, walk long distances, and perform ADLs. Avoid overhydration and dehydration. (4) HTN (hypertension) Code(s): I10 - ESSENTIAL (PRIMARY) HYPERTENSION Comment: Normotensive and borderline hypotensive, hold amlodipine at this time. (5) Dyslipidemia Code(s): E78.5 - HYPERLIPIDEMIA, UNSPECIFIED Comment: Continue statin. (6) History of recurrent TIAs Code(s): Z86.73 - PRSNL HX OF TIA (TIA), AND CEREB INFRC W/O RESID DEFICITS Comment: Warfarin on hold pre-operatively. Resume when OK with ortho. (7) History of right-sided carotid endarterectomy Code(s): Z98.890 - OTHER SPECIFIED POSTPROCEDURAL STATES Comment: In 1996. (8) DVT prophylaxis Code(s): KKP0254 - Comment: Warfarin on hold for surgery. Continue SCDs (9) Full code status Code(s): Z78.9 - OTHER SPECIFIED HEALTH STATUS Status and Disposition: Inpatient admission. Anticipate LOS > 2 days.
[2016-12-30] MEDS ORDERED: ceFAZolin 2 GM PREMIX(*) 2 GM/50 ML BAG IVPB ONE (11:15)
[2016-12-30] MEDS ORDERED: Bupivacaine 0.5% W/EPI SDV* 30 ML VIAL ONE (13:19)
[2016-12-30] MEDS ORDERED: Propofol* 10 MG/ML 20 ML BTL IV PUSH ONE (13:26)
[2016-12-30] MEDS ORDERED: Lidocaine 2% PF* 5 ML VIAL ONE (13:26)
[2016-12-30] MEDS ORDERED: fentaNYL* 50 MCG/ML 2 ML VIAL (100 MCG VIAL) ONE ×2 (13:27→16:11)
[2016-12-30] MEDS ORDERED: Rocuronium* 10 MG/ML VIAL ONE (13:27)
[2016-12-30] MEDS ORDERED: Sodium Citrate/Citric Acid* 15 ML UDC ONE (13:32)
[2016-12-30] MEDS ORDERED: fentaNYL* 50 MCG/ML 2 ML VIAL (100 MCG VIAL) IV PRN (14:46)
[2016-12-30] MEDS ORDERED: Neostigmine Methylsulfate* 2 MG/2 ML SYRINGE ONE (14:55)
[2016-12-30] MEDS ORDERED: Glycopyrrolate IV* 0.2 MG/ML 1 ML VIAL ONE (14:55)
--- NOTE | 2016-12-30 15:48 | CONS ---
CARDIOLOGY CONSULTATION: DATE OF CONSULT: 12/30/16 INDICATION FOR CONSULT: Aortic stenosis, preop for hip surgery. HISTORY OF PRESENT ILLNESS: The patient is an 86-year-old gentleman with a history of TIAs, history of carotid endarterectomy in the past, history of cardiac murmur, who was admitted to the hospital after a fall at home resulting in a right hip fracture. The patient states that he got up out of his chair, his right foot slipped out from underneath him, and fell against the floor resulting in a right hip fracture. The patient has significant murmur on exam. The patient had an echocardiogram on December 29, which demonstrated moderate concentric left ventricular hypertrophy with normal systolic function, ejection fraction of 55% to 60%, [id number] aortic stenosis with a mean gradient of 27 mmHg, dimensionless index of 0.30, trace mitral regurgitation, mild mitral stenosis. In speaking with the patient, the patient had no cardiac symptoms prior to his hip fracture. The patient was out walking around. He walked easily 500 yards without any symptoms. He denied any orthopnea. He denied any palpitations. He denied any light headedness, dizziness, or syncope. PAST MEDICAL HISTORY: Significant for TIAs, carotid endarterectomy, hypertension, hyperlipidemia, left hip fracture repair in 2008. OUTPATIENT MEDICATIONS: 1. Coumadin as directed. 2. Simvastatin 10 mg a day. 3. Multivitamin a day. 4. Persantine 25 mg b.i.d. 5. Amlodipine 5 mg a day. ALLERGIES: No known drug allergies. FAMILY HISTORY: Mother lived until 89 and of natural causes. Father lived until 90 and of prostate cancer. SOCIAL HISTORY: He is retired. He is a previous heavy smoker, he smoked for 10 years and quit 35 years ago. Rare alcohol intake. REVIEW OF SYSTEMS: Negative for changes in bowel or bladder habit. Negative for changes in weight. Negative for history of nausea or vomiting, negative for bright red blood per rectum. Other 12-point review was unremarkable. PHYSICAL EXAM: Height is 62 inches, weight is 180 pounds, temperature 98, heart rate is 85, respiratory rate is 16, blood pressure 137/59. Sclerae anicteric. Oropharynx is pink without erythema. Carotids are 2+ with soft bilateral bruits. JVD is normal. Thyroid is normal. Cardiac Exam: S1 slightly diminished. S2 with a 3/6 systolic ejection murmur heard best at the right upper sternal border. PMI is normal. Lungs are clear to auscultation bilaterally. There is no dullness to percussion. Abdomen is soft, nontender, nondistended with normoactive bowel sounds. Extremities showed no edema in his left lower extremity. His right lower extremity is in traction. The patient is awake, alert, and oriented. He moves his upper extremities without difficulty. Ambulation could not be tested. DIAGNOSTIC STUDIES/LAB DATA: CBC within normal limits. Chemistries within normal limits. Troponin level 0.01. EKG demonstrates normal sinus rhythm with left ventricular hypertrophy and T- wave abnormalities. Again, his echocardiogram shows normal LV size and systolic function with moderate- to-severe aortic stenosis. IMPRESSION AND PLAN: This is an 86-year-old gentleman who was admitted to hospital after a fall at home, he did not have any syncopal episodes, which resulted in a right hip fracture. The patient is scheduled to go to the operating room for his right hip surgery. The patient does have moderate-to- severe aortic stenosis with normal left ventricular function and no other significant valvular abnormalities. The patient has no significant cardiac history. He has no significant cardiac symptoms prior to his accident. At this point, I think the patient is at mildly to moderately increased risk of cardiovascular complications. My recommendation is the patient may proceed with surgery. The patient should be followed up as an outpatient for his aortic stenosis. No medication changes are necessary at this time. This case was discussed with Dr. Morales from Anesthesia. CC: Dr. Hawkins; Dr. Michelet Decker * [id number]/[facility] #: [id number] [facility]ITALNiranjan
[2016-12-30] MEDS ORDERED: Warfarin TAB(*) 5 MG PO ONE (17:00)
[2016-12-30] MEDS: Atorvastatin* 10 MG TAB PO SCH (17:12)
[2016-12-30] MEDS: D5W 1/2 NS 1000 ML BAG* 1,000 ML IV SCH (17:13)
[2016-12-30] MEDS: oxyCODONE/Acetamin 5/325 MG* TAB PO PRN (22:19)
[2016-12-30] MEDS: ceFAZolin 1 GM in Dextrose (*) 1 GM/50 ML BAG IVPB SCH (22:19)
[2016-12-31 05:44] LABS: Hematocrit 24 % (42-52); Hemoglobin 8.2 g/dl (14.0-18.0); Mean Corpuscular HGB Conc 34 g/dl (31-36); Mean Corpuscular Hemoglobin 35 pg (27-31); Mean Corpuscular Volume 102 fL (80-94); Mean Platelet Volume 8 um3 (7.4-10.4); Red Blood Count 2.38 10^6/ul (4.0-5.4); Red Cell Distribution Width 13 % (10.5-15); White Blood Count 8.8 10^3/ul (3.5-10.8)
[2016-12-31 06:02] LABS: BUN/Creatinine Ratio 12.3 (8-20); Calcium 8.1 mg/dL (8.6-10.3); EGFR African American 116.8 (>60); EGFR Non-African American 90.8 (>60); Potassium 3.8 mmol/L (3.5-5.0)
[2016-12-31] MEDS: ceFAZolin 1 GM in Dextrose (*) 1 GM/50 ML BAG IVPB SCH ×2 (06:03→13:41)
[2016-12-31] MEDS: D5W 1/2 NS 1000 ML BAG* 1,000 ML IV SCH (06:07)
[2016-12-31] MEDS: Heparin VIAL(*) 5000 UNITS/ML VIAL (FIVE THOUSAND) SUBCUT SCH ×2 (08:08→20:18)
[2016-12-31] MEDS: Ascorbic Acid TAB* 500 MG PO SCH (08:08)
[2016-12-31] MEDS: Polyethylene Glycol 3350* 17 GM PACKET PO SCH (08:09)
[2016-12-31] MEDS: Multivitamins/Minerals TAB PO SCH (08:09)
[2016-12-31] MEDS: Vitamin B Complex TAB PO SCH (08:09)
[2016-12-31] MEDS: oxyCODONE/Acetamin 5/325 MG* TAB PO PRN ×3 (08:10→20:14)
--- NOTE | 2016-12-31 08:56 | PN ---
Progress Note - Progress Note SOAP: Subjective: []Patient seen at bedside. Denies CP, SOB or dizziness. Eating breakfast. Pain well managed. Objective: [] Vital Signs Temp 97.4 F 12/31/16 07:30 Pulse 91 12/31/16 07:30 Resp 16 12/31/16 08:10 BP 130/55 12/31/16 07:30 Pulse Ox 99 12/31/16 07:30 Intake & Output 12/30/16 12/31/16 12/31/16 18:59 06:59 18:59 Intake Total 2164 1509 Output Total 725 1250 Balance 1439 259 Intake: IV Fluids 2164 860 D5W 1/2 NS 860 NS (0.9%) 864 lr 1300 IVPB 39 D5W 1/2 NS 39 Oral 0 610 Output: Urine 350 Car 275 1250 Estimated Blood Loss 100 Laboratory Results - last 24 hr 12/31/16 12/31/16 12/31/16 05:25 05:25 05:25 WBC 8.8 RBC 2.38 L Hgb 8.2 L Hct 24 L MCV 102 H MCH 35 H MCHC 34 RDW 13 Plt Count 126 L MPV 8 INR (Anticoag Therapy) 1.26 H Sodium 136 Potassium 3.8 Chloride 101 Carbon Dioxide 30 Anion Gap 5 BUN 10 Creatinine 0.81 Est GFR ( Amer) 116.8 Est GFR (Non-Af Amer) 90.8 BUN/Creatinine Ratio 12.3 Glucose 145 H Calcium 8.1 L Right LE with scant old bloody drainage seen under tega derm dressings, not saturated +DF/PF of the right ankle calf non tender 2+ pedal pulse Assessment: []s/p IM nail for right intertrochanteric femur fracture POD#1 Plan: []PT/OT WBAT right LE Heparin Consider transfusion PRBC - will defer to medical service PMRU rehab consult placed
--- NOTE | 2016-12-31 10:31 | RAD ---
INDICATION: RIGHT hip pinning. COMPARISON: December 28, 2016 radiographs TECHNIQUE: 71.7 seconds fluoroscopy. FINDINGS: Spot images document placement of a gamma nail across the comminuted intratrochanteric fracture with gross resolution of varus angulation. Long femoral stem component with distal locking screw. IMPRESSION: Procedural fluoroscopy. CPT II Codes: 6045F
--- NOTE | 2016-12-31 12:40 | OP ---
DATE OF OPERATION: 12/30/16 - ROOM #338 DATE OF : 34 SURGEON: Yefri Hawkins MD TRAVEL MANAGER: Fay Alonso RPA ANESTHESIOLOGIST: Julian Morales DO ANESTHESIA: General. PRE-OP DIAGNOSIS: Right hip intertrochanteric fracture. POST-OP DIAGNOSIS: Right hip intertrochanteric fracture. OPERATIVE PROCEDURE: Open reduction/internal fixation, right hip fracture. ESTIMATED BLOOD LOSS: 40 cc. COMPLICATIONS: None. INDICATIONS: Mr. Sanchez is an 86-year-old male who had stood up from a sitting position, but his leg was asleep and ended up falling. He scraped up his right shoulder and hit the right hip and was unable to weightbear. He was brought to the emergency room here at [facility] and x-rays were taken, which had found a right hip fracture. This was on December 28. He is on Coumadin and was given vitamin K and coordination was held with the hospitalist service so that it would be medically optimized. Dr. Avery was on-call and she had asked me if I could add on the case as I had some operative time on Friday. There was plan for a transesophageal echo to better evaluate his aortic stenosis this morning, and Cardiology had also seen him and reported that he was medically optimized. He had previously sustained a left hip fracture back in 2008 and undergone a TFN with Dr. Garg and had done well from that. I discussed with him this would essentially be the same surgery where we would place a trochanteric femoral nail, so that we could hold the fracture fragments in place and get him up and get him moving. Risks of surgery such as infection, scar formation, stiffness, DVT, pulmonary embolism, hardware failure and nonunion of the fracture were some of the risks discussed. He had wished to proceed. DESCRIPTION OF PROCEDURE: The patient was brought to the OR and general endotracheal anesthesia was established. Car catheter was placed. He was then transferred to the fracture table and care was taken to make sure that his arms were well padded and the left leg was also nicely padded. Traction was applied and the fracture was adjusted until the reduction appeared to be quite good. Right hip area was prepped and then draped. Skin over the incisional areas were infiltrated with 0.5% Marcaine with epinephrine and an incision was made above the greater trochanter extending for approximately 3 to 4 cm. Incision was carried down through the skin and subcutaneous tissue. Straight snap was then used to break the fascia and blood was obtained from that. By palpation, the tip of the trochanter could be felt and the awl was then placed. This was just pushed a little bit. This looked good on the AP but on the lateral, was a little bit posterior and this was readjusted using radiographic guidance so that I would come right down the center of the shaft. Coming back to the AP, the alignment seemed good and awl was pushed downwards. Intramedullary guidewire was then placed and the awl was removed. X-rays were taken at the knee to ensure that I was within the canal and it looked like I was. Femur was then reamed and I started with the 10 as he had quite a stove- type femur and just with pushing the reamer down, I did not encounter any resistance and then pushing with the 13, there was again no resistance. Portion of the guidewire coming upwards was measured and a 40 cm nail was called for. Nail was assembled and then pushed into place. Depth was adjusted until it appeared that the proximal locking screw would come right along the inferior cortex and nicely into the head. Guide was placed and the skin was dented and skin was infiltrated again and a sharp incision was made. Guides were pushed up against the femoral canal and the guidewire was then run. On the AP, it looked perfect but again on the lateral, it appeared that I was a little bit too anterior and guide was then adjusted until I came right up to the center of the neck and into the head. Alignment appeared quite good. Portion of the screw was measured and 110 mm screw was called for. Reamer was then run over the guidewire and then the screw was placed. Nice bite was obtained in his bone. Proximal lock was then also placed and the guide arm was removed. Pictures were taken proximally. Wound was irrigated and started to close using a 2-0 Vicryl. Coming distally with the C-arm, distal holes were well visualized and a small incision was made over the distal hole. Drill was placed and adjusted until it appeared I would run right through the locking hole and drill was then run. C-arm was checked with the drill bit in place to make sure I was within the hole of the rayshawn and that I did not miss. 50 mm screw was called for and placed. Final C-arm pictures in both AP and lateral planes were saved. Remaining wounds were irrigated using a bulb syringe and then closed using hollie. Sterile dressing was applied. The patient was then extubated in the OR and was stable on transfer to the recovery room. [id number]/CPS #: [id number]
--- NOTE | 2016-12-31 15:05 | PN ---
Subjective Date of Service: 12/31/16 Interval History: HOSPITALIST PROGRESS NOTE Patient seen and examined at bedside. He feels well today. Pain is well controlled, "but I haven't done anything yet" . Denies CP, dyspnea, palpitations. Family History: Unchanged from Admission Social History: Unchanged from Admission Past Medical History: Unchanged from Admission Objective Active Medications: Acetaminophen (Tylenol Tab*) 650 mg PO Q4H PRN PRN Reason: FEVER/PAIN Ascorbic Acid (Vitamin C Tab*) 500 mg PO DAILY [facility] Last Admin: 12/31/16 08:08 Dose: 500 mg Atorvastatin Calcium (Lipitor*) 5 mg PO DAILY@1700 [facility] Last Admin: 12/30/16 17:12 Dose: 5 mg Cyclobenzaprine HCl (Flexeril Tab*) 10 mg PO TID PRN PRN Reason: SPASMS Last Admin: 12/29/16 20:23 Dose: 10 mg Dipyridamole (Persantine Tab*) 25 mg PO BID [facility] Docusate Sodium (Colace Cap*) 100 mg PO BID PRN PRN Reason: CONSTIPATION Last Admin: 12/29/16 12:14 Dose: 100 mg Heparin Sodium (Porcine) (Heparin Vial(*)) 5,000 units SUBCUT Q12HR [facility] Last Admin: 12/31/16 08:08 Dose: 5,000 units Sodium Chloride (Ns 0.9% 1000 Ml*) 1,000 mls @ 100 mls/hr IV PER RATE [facility] Last Admin: 12/30/16 00:03 Dose: 100 mls/hr Dextrose/Sodium Chloride (D5w 1/2 Ns 1000 Ml Bag*) 1,000 mls @ 75 mls/hr IV PER RATE [facility] Last Admin: 12/31/16 06:07 Dose: 75 mls/hr Magnesium Hydroxide (Milk Of Magnesia Liq*) 30 ml PO Q4H PRN PRN Reason: CONSTIPATION Multivitamins/Minerals (Theragran/Minerals Tab*) 1 tab PO DAILY [facility] Last Admin: 12/31/16 08:09 Dose: 1 tab Ondansetron HCl (Zofran Inj*) 4 mg IV Q6H PRN PRN Reason: NAUSEA Last Admin: 12/28/16 19:11 Dose: 4 mg Oxycodone/Acetaminophen (Percocet 5/325 Tab*) 1 tab PO Q4H PRN PRN Reason: PAIN - MILD TO MODERATE Last Admin: 12/29/16 18:31 Dose: 1 tab Oxycodone/Acetaminophen (Percocet 5/325 Tab*) 2 tab PO Q4H PRN PRN Reason: PAIN - MODERATE TO SEVERE Last Admin: 12/31/16 08:10 Dose: 2 tab Polyethylene Glycol/Electrolytes (Miralax*) 17 gm PO DAILY [facility] Last Admin: 12/31/16 08:09 Dose: 17 gm Prochlorperazine Edisylate (Compazine Inj*) 5 mg IV Q6H PRN PRN Reason: NAUSEA/VOMITING Last Admin: 12/28/16 22:34 Dose: 5 mg Senna (Senokot Tab*) 2 tab PO BEDTIME PRN PRN Reason: CONSTIPATION Vitamin B Complex/Vitamin E (Complex B-100*) 1 tab PO DAILY [facility] Last Admin: 12/31/16 08:09 Dose: 1 tab Vital Signs 12/31/16 12:01 Temperature 97.5 F Pulse Rate 88 Respiratory 16 Rate Blood Pressure 112/50 (mmHg) O2 Sat by Pulse 93 Oximetry Oxygen Devices in Use Now: None Appearance: Pleasant elderly male lying in bed in [facility]. Eyes: No Scleral Icterus Ears/Nose/Mouth/Throat: Mucous Membranes Moist Neck: Trachea Midline Respiratory: Symmetrical Chest Expansion and Respiratory Effort, Clear to Auscultation Cardiovascular: RRR - Normal S1 and S2, +SM Abdominal: NL Sounds; No Tenderness; No Distention Extremities: No Edema, - - Good capillary refill, can wiggle toes, sensation is intact Neurological: Alert and Oriented x 3, NL Muscle Strength and Tone Lines/Tubes/Other Access: Clean, Dry and Intact Peripheral IV Nutrition: Taking PO's Result Diagrams: 12/31/16 05:25 12/31/16 05:25 Assess/Plan/Problems-Billing Assessment: Mr. 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 - Patient Problems (1) Intertrochanteric fracture of right femur Comment: - S/p IM nail 12/30/16. - Management as per Ortho. (2) Aortic stenosis Comment: - Asymptomatic at this time. - Monitor fluid status closely. (3) HTN (hypertension) Comment: - Controlled. - Continue to hold Amlodipine. (4) Dyslipidemia Comment: - Continue Atorvastatin. (5) History of recurrent TIAs Comment: - D/w Dr. Hawkins - can resume Warfarin and Aggrenox tonight. - Full dose heparin with Warfarin and antiplatelet agent would put him at a very high risk for bleeding, and he has already experienced significant blood loss with surgery. (6) Acute blood loss anemia Comment: - Hb down to 8.2, but asymptomatic. - Will continue to monitor and transfuse if Hb<8.0. (7) DVT prophylaxis Comment: - SQ heparin. (8) Full code status Status and Disposition: Inpatient admission. Anticipate LOS > 2 days.
[2016-12-31] MEDS: Atorvastatin* 10 MG TAB PO SCH (16:18)
[2016-12-31] MEDS ORDERED: Warfarin TAB(*) 5 MG PO ONE (18:00)
[2016-12-31] MEDS: DIPYRIDAMOLE 50 MG PO SCH (20:12)
[2016-12-31] MEDS: Docusate CAP* 100 MG PO PRN (20:13)
[2016-12-31] MEDS: Magnesium Hydroxide LIQ* 30 ML UDC PO PRN (20:13)
[2017-01-01] MEDS: oxyCODONE/Acetamin 5/325 MG* TAB PO PRN ×2 (03:11→10:07)
[2017-01-01 06:35] LABS: Hematocrit 23 % (42-52); Hemoglobin 7.8 g/dl (14.0-18.0); Mean Corpuscular HGB Conc 34 g/dl (31-36); Mean Corpuscular Hemoglobin 35 pg (27-31); Mean Corpuscular Volume 102 fL (80-94); Mean Platelet Volume 9 um3 (7.4-10.4); Red Blood Count 2.24 10^6/ul (4.0-5.4); Red Cell Distribution Width 13 % (10.5-15); White Blood Count 10.1 10^3/ul (3.5-10.8)
[2017-01-01 06:59] LABS: BUN/Creatinine Ratio 17.7 (8-20); Calcium 8.4 mg/dL (8.6-10.3); EGFR African American 120.2 (>60); EGFR Non-African American 93.4 (>60); Potassium 3.6 mmol/L (3.5-5.0)
[2017-01-01] MEDS ORDERED: Furosemide IV* 10 MG/ML 2 ML VIAL (20 MG) IV SLOW PU ONE (07:30)
--- NOTE | 2017-01-01 09:27 | PN ---
Progress Note - Progress Note SOAP: Subjective: []Patient seen at bedside. Pain in operative hip well managed. Denies SOB, CP or dizziness. Receiving blood transfusion. Objective: [] Vital Signs Temp 97.7 F 01/01/17 07:21 Pulse 86 01/01/17 07:21 Resp 18 01/01/17 07:56 BP 123/53 01/01/17 07:21 Pulse Ox 95 01/01/17 07:56 Intake & Output 12/31/16 01/01/17 01/01/17 18:59 06:59 18:59 Intake Total 1146 1325 Output Total 450 450 Balance 696 875 Intake: IVPB 336 D5W 1/2 NS 336 Oral 810 1325 Output: Car 450 450 Other: # Bowel Movements 0 Laboratory Results - last 24 hr 01/01/17 01/01/17 01/01/17 06:02 06:02 06:02 WBC 10.1 RBC 2.24 L Hgb 7.8 L Hct 23 L MCV 102 H MCH 35 H MCHC 34 RDW 13 Plt Count 153 MPV 9 INR (Anticoag Therapy) 1.25 H Sodium 133 Potassium 3.6 Chloride 98 L Carbon Dioxide 30 Anion Gap 5 BUN 14 Creatinine 0.79 Est GFR ( Amer) 120.2 Est GFR (Non-Af Amer) 93.4 BUN/Creatinine Ratio 17.7 Glucose 111 H Calcium 8.4 L Blood Type Antibody Screen Crossmatch 01/01/17 06:02 WBC RBC Hgb Hct MCV MCH MCHC RDW Plt Count MPV INR (Anticoag Therapy) Sodium Potassium Chloride Carbon Dioxide Anion Gap BUN Creatinine Est GFR ( Amer) Est GFR (Non-Af Amer) BUN/Creatinine Ratio Glucose Calcium Blood Type O Positive Antibody Screen Negative Crossmatch See Detail Right hip, proximal dressing was saturated with bloody drainage and changed by nurse earlier this am, wound benign. Remainder of his incisions without drainage, both benign. New dressings applied. +DF/PF right ankle calf non tender Assessment: []s/p ORIF intertrochanteric right hip fracture POD #2 acute post operative anemia Plan: []Receiving 1 unit PRBC PT/OT when able to participate, WBAT RLE Transfer to RU when medically stable On Coumadin 5mg daily and persantine tab discontinue heparin
[2017-01-01] MEDS: Magnesium Hydroxide LIQ* 30 ML UDC PO PRN (10:06)
[2017-01-01] MEDS: Ascorbic Acid TAB* 500 MG PO SCH (10:06)
[2017-01-01] MEDS: Multivitamins/Minerals TAB PO SCH (10:06)
[2017-01-01] MEDS: Docusate CAP* 100 MG PO PRN (10:06)
[2017-01-01] MEDS: Polyethylene Glycol 3350* 17 GM PACKET PO SCH (10:07)
[2017-01-01] MEDS: Vitamin B Complex TAB PO SCH (10:20)
[2017-01-01] MEDS: DIPYRIDAMOLE 50 MG PO SCH (10:20)
[2017-01-01] MEDS: Heparin VIAL(*) 5000 UNITS/ML VIAL (FIVE THOUSAND) SUBCUT SCH (10:21)
[2017-01-01] MEDS ORDERED: PROCHLORPERAZINE INJ 5 MG/ML 2 ML VIAL IV PRN (10:56)
[2017-01-01 10:59] VITALS: BP 130/56
[2017-01-01] MEDS ORDERED: Heparin VIAL(*) 5000 UNITS/ML VIAL (FIVE THOUSAND) SUBCUT SCH (14:00)
[2017-01-01] MEDS ORDERED: Warfarin TAB(*) 5 MG PO SCH (17:00)
--- NOTE | 2017-01-02 08:48 | DS ---
DISCHARGE SUMMARY: DATE OF ADMISSION: 12/28/16 DATE OF DISCHARGE: To [facility] 01/01/17. PRIMARY CARE PROVIDER: Michelet Decker MD ORTHOPEDIST: Yefri Hawkins MD DISCHARGE DIAGNOSES: 1. Intertrochanteric fracture of the right femur, status post open reduction and internal fixation by Dr. Hawkins on December 30. 2. Zdcurive-ah-tzzice aortic stenosis. 3. Acute blood loss anemia. SECONDARY DIAGNOSES: 1. History of recurrent transient ischemic attacks, on warfarin and Persantine as outpatient. 2. Status post right carotid endarterectomy in 1996. 3. Hypertension. 4. Hyperlipidemia. 5. Status post left hip fracture repair in 2008. MEDICATION LIST: 1. Acetaminophen 650 mg p.o. q.4 hours p.r.n. pain or fever, maximum 4 g of acetaminophen in 24 hours. 2. Amlodipine 5 mg p.o. daily. 3. Vitamin C 500 mg p.o. daily. 4. Vitamin B 1 tablet p.o. daily. 5. Flexeril 10 mg p.o. t.i.d. as needed for spasm. 6. Dipyridamole 25 mg p.o. b.i.d. 7. Colace 100 mg p.o. b.i.d. p.r.n. constipation. 8. Heparin 5000 units subcutaneously q.8 hours until INR greater than 2. 9. Milk of magnesia 30 mL p.o. q.4 hours p.r.n. constipation. 10. Multivitamin 1 tablet p.o. daily. 11. Oxycodone 5/325 mg 1 tablet p.o. q.4 hours as needed for pain 1 to 5 and 2 tablets p.o. q.4 hours p.r.n. pain 6 to 10, MDD 8 tablets. 12. MiraLAX 17 g p.o. daily. 13. Senna 2 tablets p.o. at bedtime as needed for constipation. 14. Simvastatin 10 mg p.o. daily. 15. Warfarin 5 mg p.o. daily. HOSPITAL COURSE: Mr. Sanchez is an 86-year-old male who presented to the emergency room on December 28 after sustaining a fall at home. He was sleeping in a chair, woke up, tried to get up, but he lost his balance and fell. In the emergency room, his x-ray revealed a right intertrochanteric fracture and he was admitted for further management. On physical examination, the patient was found to have a murmur, so a echocardiogram was performed and it showed the left ventricular chamber size is decreased with moderate concentric LVH observed , ejection fraction 55% to 60% with [id number] aortic stenosis with significant aortic valve sclerosis and calcification. The patient was optimized for surgery and taken to the OR on December [address] Hawkins, where he underwent open reduction and internal fixation of his right hip fracture. The patient did well postoperatively, but he did have a drop in his H and H from 14.4 on admission to 7.8. The patient received 1 PRBC and he will need 1 dose of furosemide after transfusion since we have to watch his fluid status closely with his aortic stenosis. I discussed the case with Dr. Hawkins and he felt that we could resume warfarin and Persantine 24 hours after surgery. Although the patient had TIAs in the past, decision was made not to use therapeutic dose Lovenox for bridging due to his significant blood loss with hemoglobin going down from 14 to 7.8. He should be on a prophylactic dose of subcutaneous heparin until his INR is greater than 2, but his H and H needs to be monitored closely. I did explain the risks and benefits of this decision to the patient and his daughter at bedside and they are in agreement with this course of action. The patient was found to have physical therapy needs and he was offered a bed at [facility] to continue his rehabilitation process. PHYSICAL EXAMINATION: Vital Signs: Temperature 98.5, heart rate is 92, respiratory rate is 16, oxygen saturation 96% on room air, and blood pressure is 130/56. General: The patient is a pleasant elderly male, sitting up in bed , in no acute distress. CVS: Normal S1, S2. Regular rate and rhythm with a systolic murmur. Chest: Breath sounds present bilaterally with no added sounds. Abdomen: Soft. Bowel sounds are present. Extremities: There is no edema. Clean dressing, intact to the right lower extremity. There is no tingling. The patient is able to move his right leg and there is capillary refill. Neuro: He is alert, awake, and oriented x3. Able to move all 4 extremities. DIET: Heart healthy diet. ACTIVITY: As tolerated. DISPOSITION: To [facility]. STATUS WHILE IN HOSPITAL: Inpatient. Please keep in mind, this is a summarized version of this patient's hospital stay. If you need more information, please feel free to call me at or please obtain the full medical records. TIME SPENT: Approximately 45 minutes was spent to complete this discharge. CC: Dr. Decker; Dr. Hawkins; Dr. Pop* [id number]/CPS #: [id number] [facility]
== END 2017-01-01 11:20 | DRG 481 ==
LOC: ED 15:02 → SSU 17:38
PROVIDERS: ADMIT Hospitalist; ATTEND Internal Medicine
PROC: 0QS604Z Reposition Right Upper Femur with Internal Fixation Device, Open Approach (ICD-10-PCS; 2016-12-30)
PROC: 30233N1 Transfusion of Nonautologous Red Blood Cells into Peripheral Vein, Percutaneous Approach (ICD-10-PCS; principal; 2017-01-01)
DX: S72.141A Displaced intertrochanteric fracture of right femur, initial encounter for closed fracture (principal); D62 Acute posthemorrhagic anemia; I35.0 Nonrheumatic aortic (valve) stenosis; I10 Essential (primary) hypertension; I25.10 Atherosclerotic heart disease of native coronary artery without angina pectoris; W07.XXXA Fall from chair, initial encounter; Y92.009 Unspecified place in unspecified non-institutional (private) residence as the place of occurrence of the external cause; Z86.73 Personal history of transient ischemic attack (TIA), and cerebral infarction without residual deficits; E78.5 Hyperlipidemia, unspecified; Z80.42 Family history of malignant neoplasm of prostate; Z87.891 Personal history of nicotine dependence; Z79.01 Long term (current) use of anticoagulants
CPT/HCPCS: 36415; 70450; 71010; 80048; 80053; 81003; 81015; 83036; 83690; 84484; 85025; 85027; 85610; 85730; 86850; 86900; 86901; 86922; 93005; 93306; A9270-GY; C1713; C1776; J0690; J0780; J1644; J1940; J2270; J2405; J2704; J3010; P9016

== ENCOUNTER 2020-11-07 11:42 | Inpatient (IN) ==
[2020-11-07] MEDS ORDERED: Tetan/Diph/Pertus SYR(Tdap) 0.5 ML SYR(BOOSTRIX) use SYR contains LATEX IM ONE (12:03)
[2020-11-07 12:41] LABS: ABS Lymphocytes 0.5 10^3/ul (1.0-4.8); ABS Monocytes 0.6 10^3/ul (0-0.8); ABS Neutrophils 10.4 10^3/ul (1.5-7.7); Hematocrit 25 % (42-52); Hemoglobin 8.5 g/dL (14.0-18.0); Lymphocyte % 4.5 %; Mean Corpuscular HGB Conc 34 g/dL (31-36); Mean Corpuscular Hemoglobin 35 pg (27-31); Mean Corpuscular Volume 103 fL (80-94); Mean Platelet Volume 9.4 fL (7.4-10.4); Nucleated Red Blood Cells % 0.2; Platelet Count 191 10^3/uL (150-450); Red Blood Count 2.44 10^6 /uL (4.18-5.48); Red Cell Distribution Width 15 % (10-15); White Blood Count 11.5 10^3/uL (3.5-10.8)
[2020-11-07 12:55] LABS: INR 1.42 (0.82-1.09)
[2020-11-07 12:59] LABS: Troponin I 0.96 ng/mL (<0.03)
[2020-11-07 13:04] LABS: ALT 11 U/L (7-52); AST 40 U/L (13-39); Albumin/Globulin Ratio 1.7 (1-3); Alkaline Phosphatase 60 U/L (34-104); Anion Gap 12 mmol/L (2-11); BUN/Creatinine Ratio 53.5 (8-20); Blood Urea Nitrogen 54 mg/dL (6-24); CO2 Carbon Dioxide 21 mmol/L (22-32); Calcium 9.2 mg/dL (8.6-10.3); Chloride 106 mmol/L (101-111); EGFR African American 84.4 (>60); EGFR Non-African American 69.7 (>60); Globulin 2.3 g/dL (2-4); Glucose 137 mg/dL (70-100); Potassium 4.3 mmol/L (3.5-5.0); Sodium 139 mmol/L (135-145); Total Protein 6.3 g/dL (6.4-8.9)
[2020-11-07] MEDS ORDERED: Ondansetron 4 mg VIAL 2 MG/ML 2 ml VIAL IV PRN (14:09)
[2020-11-07 16:06] LABS: Troponin I 4.46 ng/mL (<0.03)
[2020-11-07] MEDS: Pantoprazole VIAL 40 MG VIAL IV SCH ×2 (16:56→20:16)
[2020-11-07 19:20] LABS: Hematocrit 28 % (42-52); Hemoglobin 9.2 g/dL (14.0-18.0)
[2020-11-07 19:36] LABS: Troponin I 7.95 ng/mL (<0.03)
[2020-11-07 20:46] LABS: Hematocrit 28 % (42-52); Hemoglobin 9.1 g/dL (14.0-18.0)
[2020-11-07 22:28] LABS: Troponin I 9.74 ng/mL (<0.03)
[2020-11-08 01:46] LABS: Hematocrit 27 % (42-52); Hemoglobin 9.5 g/dL (14.0-18.0)
[2020-11-08 02:10] LABS: Troponin I 12.84 ng/mL (<0.03)
[2020-11-08] MEDS ORDERED: Furosemide 20 mg/2 ml IV VIAL IV SLOW PU ONE (02:39)
[2020-11-08] MEDS: Pantoprazole VIAL 40 MG VIAL IV SCH (08:15)
[2020-11-08 10:18] LABS: Hematocrit 31 % (42-52); Hemoglobin 10.6 g/dL (14.0-18.0)
[2020-11-08 10:43] LABS: Anion Gap 7 mmol/L (2-11); Blood Urea Nitrogen 52 mg/dL (6-24); CO2 Carbon Dioxide 24 mmol/L (22-32); Calcium 8.6 mg/dL (8.6-10.3); Chloride 106 mmol/L (101-111); Cholesterol 95 mg/dL; EGFR African American 83.4 (>60); EGFR Non-African American 68.9 (>60); Glucose 127 mg/dL (70-100); HDL Cholesterol 26.1 mg/dL; LDL Cholesterol 38 mg/dL; Potassium 3.9 mmol/L (3.5-5.0); Sodium 137 mmol/L (135-145); Triglycerides 156 mg/dL
[2020-11-08 11:05] LABS: Troponin I 17.36 ng/mL (<0.03)
[2020-11-08] MEDS ORDERED: Digoxin IV 0.5 MG/2 ML AMP (0.25 MG/ML) IV SLOW PU ONE (11:06)
[2020-11-08 15:47] LABS: Troponin I 22.74 ng/mL (<0.03)
[2020-11-08 16:39] LABS: Hematocrit 31 % (42-52); Hemoglobin 10.7 g/dL (14.0-18.0)
[2020-11-08 17:29] VITALS: BP 115/63
== END 2020-11-08 17:25 | disposition short-term general hospital (02) | DRG 377 ==
LOC: ED 11:42 → MEDTELE 14:06
PROVIDERS: ADMIT Internal Medicine; ATTEND Internal Medicine

== ENCOUNTER 2022-03-26 15:26 | Inpatient (IN) ==
[2022-03-26] MEDS ORDERED: ceFAZolin VIAL 2 GM in NS 0.9% 100 ml BAG 100 ML IVPB ONE (15:51)
[2022-03-26 16:11] LABS: ABS Lymphocytes 0.9 10^3/ul (1.0-4.8); ABS Monocytes 0.6 10^3/ul (0-0.8); ABS Neutrophils 3.6 10^3/ul (1.5-7.7); Eosinophil % 0.7 %; Hematocrit 33 % (42-52); Hemoglobin 10.9 g/dL (14.0-18.0); Lymphocyte % 16.7 %; Mean Corpuscular HGB Conc 33 g/dL (31-36); Mean Corpuscular Hemoglobin 34 pg (27-31); Mean Corpuscular Volume 103 fL (80-94); Mean Platelet Volume 8.6 fL (7.4-10.4); Nucleated Red Blood Cells % 0.1; Platelet Count 209 10^3/uL (150-450); Red Blood Count 3.24 10^6 /uL (4.18-5.48); Red Cell Distribution Width 16 % (10-15); White Blood Count 5.2 10^3/uL (3.5-10.8)
[2022-03-26 16:32] LABS: INR 1.57 (0.86-1.15)
[2022-03-26 17:06] LABS: Albumin 3.7 g/dL (3.2-5.2); Albumin/Globulin Ratio 1.3 (1-3); C Reactive Protein 30.82 mg/L (<8.01); Globulin 2.9 g/dL (2-4); Potassium 4.2 mmol/L (3.5-5.0); Total Bilirubin 1.1 mg/dL (0.2-1.0); Total Protein 6.6 g/dL (6.4-8.9); eGFR CKD-EPI 63.5 (>60)
[2022-03-26] MEDS ORDERED: ceFAZolin 2 GM PREMIX 2 GM/50 ML BAG IV ONE (17:15)
[2022-03-26] MEDS ORDERED: Magnesium Hydroxide LIQ 30 ML UDC PO PRN (18:12)
[2022-03-26] MEDS ORDERED: cefTRIAXone 1 gm/50 mL D5W 1 GM/50 ML BAG IV ONE (19:15)
[2022-03-27 05:16] LABS: ABS Lymphocytes 0.7 10^3/ul (1.0-4.8); ABS Monocytes 0.6 10^3/ul (0-0.8); ABS Neutrophils 3.9 10^3/ul (1.5-7.7); Eosinophil % 0.5 %; Hematocrit 33 % (42-52); Hemoglobin 11.2 g/dL (14.0-18.0); Lymphocyte % 12.8 %; Mean Corpuscular HGB Conc 34 g/dL (31-36); Mean Corpuscular Hemoglobin 35 pg (27-31); Mean Corpuscular Volume 104 fL (80-94); Mean Platelet Volume 9.8 fL (7.4-10.4); Nucleated Red Blood Cells % 0.1; Platelet Count 198 10^3/uL (150-450); Red Blood Count 3.21 10^6 /uL (4.18-5.48); Red Cell Distribution Width 16 % (10-15); White Blood Count 5.2 10^3/uL (3.5-10.8)
[2022-03-27 05:34] LABS: Anion Gap 7 mmol/L (2-11); Blood Urea Nitrogen 27 mg/dL (6-24); C Reactive Protein 30.33 mg/L (<8.01); CO2 Carbon Dioxide 29 mmol/L (22-32); Calcium 8.8 mg/dL (8.6-10.3); Chloride 106 mmol/L (101-111); Glucose 97 mg/dL (70-100); Sodium 142 mmol/L (135-145); eGFR CKD-EPI 71.1 (>60)
[2022-03-27] MEDS ORDERED: Furosemide 40 mg/4 ml IV VIAL IV SCH (08:00)
[2022-03-27 08:56] LABS: Folate > 20.00 ng/mL (5.90-24.80)
[2022-03-27 08:57] LABS: Vitamin B12 814 pg/mL (180-914)
[2022-03-27] MEDS ORDERED: Perflutren Lipid Microsphere 3 ML VIAL ONE (09:46)
[2022-03-27] MEDS ORDERED: Iohexol 350 (CONTRAST) 500 ML MDV IV ONE (13:15)
[2022-03-27] MEDS ORDERED: cefTRIAXone 1 gm/50 mL D5W 1 GM/50 ML BAG IV SCH (21:00)
[2022-03-28 06:03] LABS: ABS Lymphocytes 1.1 10^3/ul (1.0-4.8); ABS Monocytes 0.7 10^3/ul (0-0.8); ABS Neutrophils 4.3 10^3/ul (1.5-7.7); Eosinophil % 0.6 %; Hematocrit 34 % (42-52); Hemoglobin 11.4 g/dL (14.0-18.0); Lymphocyte % 17.2 %; Mean Corpuscular HGB Conc 33 g/dL (31-36); Mean Corpuscular Hemoglobin 35 pg (27-31); Mean Corpuscular Volume 104 fL (80-94); Nucleated Red Blood Cells % 0.1; Platelet Count 213 10^3/uL (150-450); Red Cell Distribution Width 16 % (10-15); White Blood Count 6.2 10^3/uL (3.5-10.8)
[2022-03-28 06:34] LABS: Albumin 3.7 g/dL (3.2-5.2); Albumin/Globulin Ratio 1.3 (1-3); Calcium 9.1 mg/dL (8.6-10.3); Globulin 2.9 g/dL (2-4); Magnesium 2.1 mg/dL (1.9-2.7); Potassium 3.5 mmol/L (3.5-5.0); Total Bilirubin 1.3 mg/dL (0.2-1.0); Total Protein 6.6 g/dL (6.4-8.9); eGFR CKD-EPI 62.8 (>60)
[2022-03-28] MEDS ORDERED: Furosemide 40 mg/4 ml IV VIAL IV ONE (08:00)
[2022-03-28] MEDS ORDERED: Lidocaine 1% MPF 5 ML VIAL ONE (10:11)
[2022-03-28] MEDS ORDERED: Heparin 2 UNITS/ML IVPREMIX 3,000 UNIT/1,500 ML BAG IV ONE (10:11)
[2022-03-28] MEDS ORDERED: Iohexol 350 (CONTRAST) 50 ML SDV IV ONE (10:11)
[2022-03-28] MEDS ORDERED: fentaNYL 100 mcg/2 ml 50 MCG/ML VIAL ONE (10:24)
[2022-03-28] MEDS ORDERED: Midazolam 5 mg/5 ml VIAL 1 mg/ml 5 ml VIAL (5 mg) ONE (10:24)
[2022-03-28] MEDS ORDERED: nitroGLYCERIN DRIP 25,000 MCG/250 ML BTL ONE (11:34)
[2022-03-28] MEDS ORDERED: Metoprolol Tartrate 5 mg VIAL 5 ml VIAL (1 mg/ml) ONE (12:21)
[2022-03-28] MEDS ORDERED: Ondansetron 4 mg VIAL 2 MG/ML 2 ml VIAL IV PRN (14:57)
[2022-03-29 07:35] VITALS: BP 130/58
[2022-03-29 08:50] LABS: ABS Lymphocytes 0.7 10^3/ul (1.0-4.8); ABS Monocytes 0.6 10^3/ul (0-0.8); ABS Neutrophils 5.3 10^3/ul (1.5-7.7); Eosinophil % 0.2 %; Hematocrit 34 % (42-52); Hemoglobin 11.4 g/dL (14.0-18.0); Lymphocyte % 10.5 %; Mean Corpuscular HGB Conc 33 g/dL (31-36); Mean Corpuscular Hemoglobin 34 pg (27-31); Mean Corpuscular Volume 103 fL (80-94); Mean Platelet Volume 9.4 fL (7.4-10.4); Platelet Count 226 10^3/uL (150-450); Red Blood Count 3.32 10^6 /uL (4.18-5.48); Red Cell Distribution Width 15 % (10-15); White Blood Count 6.6 10^3/uL (3.5-10.8)
[2022-03-29 09:27] LABS: Albumin 3.7 g/dL (3.2-5.2); Albumin/Globulin Ratio 1.2 (1-3); Calcium 8.9 mg/dL (8.6-10.3); Potassium 3.5 mmol/L (3.5-5.0); Total Bilirubin 1.7 mg/dL (0.2-1.0); Total Protein 6.7 g/dL (6.4-8.9); eGFR CKD-EPI 67.1 (>60)
== END 2022-03-29 16:32 | disposition home health service (06) | DRG 252 ==
LOC: EDHOLD 15:26 → ED 15:26 → SUATTDRO 18:12 → SSU 21:27
PROVIDERS: ADMIT Internal Medicine; ATTEND Hospitalist